=== PATIENT | male | born 1955 | race Caucasian/White ===

== ENCOUNTER 2020-03-31 15:06 | Emergency (ER) | payer OTHER ==
[~2020-03-31] VITALS: Ht 170.2 cm; Wt 109.9 kg
[2020-03-31 15:10] VITALS: BP 162/88
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
[2020-03-31] MEDS ORDERED: IV NORMAL SALINE 50ML 50 ML ONE (15:41)
[2020-03-31] MEDS ORDERED: ceFAZolin SODIUM 1 GM VIAL ONE (15:41)
--- NOTE | 2020-03-31 15:41 | EKG ---
[address] [address] Test Date: 2020-03-31 Test Time: 15:35:03 Pat Name: CHIDI SILVER Department: Room: Gender: M Manager Pricing: RADHA : 1955 Requested By: LUISITO ROYAL Order Number: [id number] Reading MD: Ramon Pickard MD Measurements Intervals [place] Rate: 62 P: 34 FL: 146 QRS: -24 QRSD: 106 T: 46 QT: 394 QTc: 402 Interpretive Statements SINUS RHYTHM Electronically Signed On 04-01-2020 10:52:57 OBSTETRICIAN AND GYNAECOLOGIST by Ramon Pickard MD
[2020-03-31] MEDS ORDERED: IOHEXOL 300 MG/ML 75 ML VIAL. IV ONE (15:45)
[2020-03-31 15:50] LABS: BASO # 0.1 x10^3/uL (0.0-0.2); BASO % 1 % (0-3); EOS # 0.1 x10^3/uL (0.0-0.7); EOS % 2 % (0-3); HEMATOCRIT 42.9 % (39.0-53.0); HEMOGLOBIN 14.3 g/dL (13.0-17.5); LYMPH % 38 % (24-48); MEAN CORPUSCULAR HEMOGLOBIN 33 pg (25-35); MEAN CORPUSCULAR HGB CONC 33 g/dL (31-37); MEAN CORPUSCULAR VOLUME 97 fL (79-100); MONO # 0.6 x10^3/uL (0.0-1.1); MONO % 7 % (0-9); NEUT # 4.2 x10^3uL (1.8-7.7); NEUT % 53 % (31-73); PLATELET COUNT 194 x10^3/uL (140-400); RED BLOOD COUNT 4.41 x10^6/uL (4.30-5.70); RED CELL DISTRIBUTION WIDTH 13.4 % (11.5-14.5)
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
[2020-03-31] MEDS ORDERED: DIPH,PERTUSS(ACELL),TET VAC/PF 0.5 ML SYRINGE. VAX IM ONE (16:00)
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
[2020-03-31 16:19] LABS: CALCIUM 9.6 mg/dL (8.5-10.1); CREATININE 0.9 mg/dL (0.7-1.3); GFR 85.2; POTASSIUM 4.4 mmol/L (3.5-5.1)
[2020-03-31 16:26] LABS: ALBUMIN/GLOBULIN RATIO 1.1 (1.0-1.7); TOTAL BILIRUBIN 0.8 mg/dL (0.2-1.0); TOTAL PROTEIN 7.5 g/dL (6.4-8.2)
[2020-03-31] MEDS ORDERED: LIDOCAINE 1% Multi-Dose 20 ML VIAL. IJ ONE (16:45)
[2020-03-31] MEDS ORDERED: ACETAMINOPHEN 500 MG TABLET PO ONE (17:15)
[2020-03-31] MEDS ORDERED: CEPH-264 PO (17:54)
[2020-03-31] MEDS ORDERED: BACI28.34 TP (17:54)
== END 2020-03-31 18:00 | disposition home or self-care (01) ==
LOC: ER 15:06
DX: S62.524B Nondisplaced fracture of distal phalanx of right thumb, initial encounter for open fracture (principal); R10.11 Right upper quadrant pain; R79.89 Other specified abnormal findings of blood chemistry; V43.52XA Car driver injured in collision with other type car in traffic accident, initial encounter; Y93.I9 Activity, other involving external motion; Y92.488 Other paved roadways as the place of occurrence of the external cause; Y99.8 Other external cause status
CPT/HCPCS: 29125; 36415; 71260; 73130; 74177; 80053; 83690; 84484; 85025; 90471; 90715; 93005; 96365; 99285; J0690; Q9967